=== PATIENT | female | born 1945 | race Caucasian/White ===

== ENCOUNTER 2025-03-01 08:56 | Emergency (ER) | payer MEDICARE, SELFPAY ==
[2025-03-01 08:56] VITALS: BP 151/76; PULSE 79; RESP 14; TEMP 36.1; O2SAT 98
--- NOTE | 2025-03-01 09:36 | RAD_ITS ---
PROCEDURE: ABDOMEN SINGLE VIEW 03/01/2025 REASON FOR EXAM: CONSTIPATION. TECHNIQUE: Procedure Code: RADABD Modality: DX Procedure: Two-view supine abdomen. COMPARISON: None provided. RAD/Abdomen Single View IMPRESSION: Calcified uterine fibroids noted. Degenerative changes are seen throughout the visualized lower thoracic and lumb ar spine. Hip joints appear symmetric and within the normal range for age. No excess stool burden is seen. No bowel dilation is noted. No mass or mass effect is seen. Reading Location: [id number]
--- NOTE | 2025-03-01 09:37 | ED.VIS.GI ---
HPI HPI - GI History of Present Illness Chief Complaint: Constipation Detail of Chief Complaint: No abdominal pain. Informant: patient Nausea/Vomiting/Emesis GI Symptom: Negative for Nausea or Vomiting Diarrhea/Melena/Hematochezia GI Symptom: Negative for Diarrhea, Melena or Hematochezia Associated Symptoms Associated Symptoms: Negative for Dysuria, Frequency, Hematuria or Urgency Narrative Narrative: 79-year-old female history of prior breast cancer prior appendectomy. States she has had constipation for more than 2 weeks. No bowel movement since before February 14. She was on a wait list drug at that time. She denies any abdominal pain. She denies any nausea vomiting or diarrhea. No dysuria. No fever. She went to an urgent care and they told her to use magnesium citrate without relief. She did have a CAT scan done showed what they believed to be diverticulitis and started on Augmentin about a week ago. She is taking that twice a day. Says she is really not had any bowel movement at all for about 15 days. Prior similar symptoms: No Recent Illness/Hospitalization: No PFSH PFSH Medical History HX: breast cancer Home Medications Medication Instructions Recorded Last Taken Type Barley Supplement 5 ea PO TID 11/25/14 Unknown History Betaglucan Capsule 3 capsule PO DAILY 11/25/14 Unknown History Heart Plus Supplement 2 ea PO TID 11/25/14 Unknown History Tumeric 750 mg PO TID 11/25/14 Unknown History cholecalciferol (vitamin D3) 125 5,000 units PO TID 11/25/14 Unknown History mcg (5,000 unit) capsule chromium nicotinate glycinate 250 1 ea PO TID 11/25/14 Unknown History mcg-herbal no.238 775 mg tablet (Green Tea (with Metabolic Enhancer Blend)) coenzyme Q10 50 mg capsule (Co 50 mg PO BID 11/25/14 Unknown History Q-10) melatonin ER 10 mg-pyridoxine HCl 1 ea PO QHS 11/25/14 Unknown History (B6) 10 mg tab, immed-extend release multivitamin with folic acid 400 1 tab PO DAILY 11/25/14 Unknown History mcg tablet (Thera) oxycodone-acetaminophen 5 mg-325 1 - 2 tab PO Q4H PRN Pain ##30 12/01/14 Unknown Rx mg tablet Allergy/AdvReac Type Severity Reaction Status Date / Time No Known Allergies Allergy Verified 03/01/25 08:57 Surgical History Hx of mastectomy Social History Smoking Status: Never smoker ROS ROS ED ROS Narrative Constipation. Denies pain. Denies nausea or vomiting. Denies bloating. Constitutional Constitutional ED: Denies chills or fever(s) ENT ENT ED: Denies ear pain Respiratory/Chest Respiratory/Chest: Denies cough Gastrointestinal Gastrointestinal: Reports constipation; Denies abdominal pain, diarrhea, melena, nausea or vomiting Genitourinary Genitourinary ED: Denies dysuria or hematuria Musculoskeletal Musculoskeletal: Denies arthralgias or back pain Integumentary Denies abscess Neurologic Neurologic: Denies headache(s) Psychiatric Psychiatric: Denies anxiety Endocrine Endocrinology: Denies polydipsia Hematologic/Lymphatic Hematologic/Lymphatic: Denies easy bleeding Allergic/Immunologic Allergic/Immunologic ED: Denies mouth swelling, tongue swelling or urticaria EXAM Physical Exam Narrative Exam Narrative: 79-year-old female sitting upright in a chair. Then transferred to the bed without any difficulty. Vital signs stable afebrile. No distress. H EENT exam pupils round react light. Moist mucous membranes. Neck nontender no JVD. Lungs clear to auscultation bilaterally. Heart regular rhythm no murmur. Chest wall ribs nontender. Abdomen soft, nontender, nondistended, normal bowel sounds without peritoneal signs. No hernia or mass. No distention. No obstruction. Absolutely no pain in any quadrant. Moving all 4 extremities. Nontender. Normal strength. Back nontender. Neurologically she is awake alert. Answering questions following commands. Const Vital Signs: 03/01/25 08:56 Temperature 97 F L Temperature Source Temporal Pulse Rate 79 Respiratory Rate 14 Blood Pressure 151/76 H Blood Pressure Mean 101 Pulse Ox 98 Oxygen Delivery Method Room Air MDM MDM MDM Narrative Medical decision making narrative: 79-year-old female with constipation for 2 weeks. She has absolutely no abdominal pain. No reproducible pain. A KUB will be obtained. She reportedly had a CAT scan done at a facility within the last week she is going to see if she can find his results on MyChart so I can see this. Repeat exam around 10:06 AM unchanged. Abdomen nontender nondistended. No peritoneal signs. She got one of her x-ray. Consistent with constipation. Should be discharged home with GoLytely. Follow-up with primary care physician not improving or return if worse. Radiography Diagnostic Testing: KUB, 2 films 1 view shows increase stool in the rectum and throughout the colon. No bowel obstruction. No air-fluid levels. No distention of the bowel. Interpreted by myself. I did go over the x-ray results with the patient. Discharge Plan Triage Chief Complaint: Constipation ED Provider: Parviz Bardales Dx/Rx/DC Orders Clinical Impression: Constipation Instructions: ED Constipation (Adult) Prescriptions: No Action coenzyme Q10 [Co Q-10] 50 MG capsule 50 mg PO BID Patient Comments: supplement cholecalciferol (vitamin D3) 5,000 UNIT capsule 5,000 units PO TID Patient Comments: supplement multivitamin with folic acid [Thera] 1 TABLET tablet 1 tab PO DAILY Patient Comments: vitamin melatonin-pyridoxine HCl (B6) 1 EACH tablet, IR and ER, biphasic 1 ea PO QHS Patient Comments: sleep chromium-herb no.238 [Green Tea (w/Met.Enhan.Blend)] 1 EACH tablet 1 ea PO TID Patient Comments: supplement Barley Supplement 5 ea PO TID Patient Comments: supplement Betaglucan Capsule 3 capsule PO DAILY Patient Comments: supplement Heart Plus Supplement 2 ea PO TID Patient Comments: supplement Tumeric 750 mg PO TID Patient Comments: supplement oxycodone-acetaminophen 1 TABLET tablet 1 - 2 tab PO Q4H PRN (Reason: Pain) Qty: 30 0RF Patient Comments: pain Primary Care Provider: SCOOBY TEMPLE Referrals: Care Physician,No Primary [Non-Staff, Medical] Activity Restrictions/Additional Instructions: GoLytely 10 ounce glass every 30 minutes until you have a bowel movement. Or you can drink the entire liter at 1 time. Follow-up with your doctor if not improving. Return if worse. Abdominal pain with nausea and vomiting. Plenty of fluids, fruits, vegetables and fiber to help regulate your bowel movements. Print Language: Bengali Disposition Disposition: Home, Self Care
[2025-03-01 10:39] VITALS: BP 117/86; PULSE 77
[2025-03-01] MEDS: Electrolyte Solution/Peg's 4000 ML 2000 ML PO (10:47)
== END 2025-03-01 10:49 | disposition home or self-care (01) ==
PROVIDERS: Emergency Provider Emergency Medicine; PCP Student in an Organized Health Care Education/Training Program; Visit Provider Emergency Medicine
DX: K59.00 Constipation, unspecified (principal); K57.92 Diverticulitis of intestine, part unspecified, without perforation or abscess without bleeding; Z90.49 Acquired absence of other specified parts of digestive tract
CPT/HCPCS: 74018; 99283